=== PATIENT | male | born 1980 | race Caucasian/White ===

== ENCOUNTER 2019-01-21 20:52 | Emergency (ER) | payer OTHER ==
[~2019-01-21] VITALS: Ht 180.3 cm; Wt 99.8 kg
[2019-01-21] MEDS ORDERED: IBUP800 PO (22:04)
== END 2019-01-21 22:38 | disposition home or self-care (01) ==
LOC: ER 20:52
DX: S42.341A Displaced spiral fracture of shaft of humerus, right arm, initial encounter for closed fracture (principal); V67.6XXA Passenger in heavy transport vehicle injured in collision with fixed or stationary object in traffic accident, initial encounter
CPT/HCPCS: 29105; 73060; 96372-59; 99284-25; A9270; J1885